=== PATIENT | female | born 1970 ===

== ENCOUNTER 2024-06-14 13:57 | Emergency (ER) | payer OTHER, SELFPAY ==
[2024-06-14 14:04] VITALS: BP 134/81; PULSE 79; TEMP 36.6; O2SAT 98; BMI 33.7
--- NOTE | 2024-06-14 14:30 | CT_ITS ---
The [address] [address] Patient Name: JHONNY DEAN MRN: [id number] date: 1970 Sex: F Assigned Patient Location: ER Current Patient Location: Accession/Order Number: [id number] Exam Date: 06/14/2024 15:00 Report Date: 06/14/2024 16:13 At the request of: NICOLA BISHOP Procedure: CT abdomen pelvis wo con EXAMINATION: CT abdomen pelvis wo con HISTORY: Left flank pain COMPARISON: No relevant comparison available. TECHNIQUE: Axial, Coronal, and Sagittal images were created without IV contrast. Dose reduction techniques were achieved by using automated exposure control and/or adjustment of mA and/or kV according to patient size and/or use of iterative reconstruction technique. FINDINGS: LUNG BASES: 5 mm nodule medial basilar segment of the right lower lobe. Dependent atelectasis. LIVER: Hepatomegaly, the liver measures 25 cm transversely image #26. No focal lesions BILIARY: Surgical clips from cholecystectomy PANCREAS: No lesion, fluid collection, ductal dilatation, or atrophy. SPLEEN: No enlargement or focal lesion. ADRENALS: No mass or enlargement. KIDNEYS: No mass, obstruction, or calcification. BOWEL/MESENTERY: Mild colonic diverticulosis without evidence of acute diverticulitis. AORTA/VASCULAR: No aneurysm or dissection. RETROPERITONEUM: No mass or adenopathy. LYMPH NODES: No adenopathy. URINARY BLADDER: No visible focal wall thickening, lesion, or calculus. PELVIC ORGANS: Hysterectomy ABDOMINAL WALL: No mass or hernia. BONES: No bony lesion or fracture. OTHER: Negative. CT/CT abdomen pelvis wo con IMPRESSION: No obstructive uropathy Electronically authenticated by: JOBY WISEMAN Date: 06/14/2024 16:13
--- NOTE | 2024-06-14 14:32 | ED.GENADUL1 ---
HPI HPI - General Adult General Chief complaint: Abdominal Pain Stated complaint: BACK PAIN, BLOODY STOOLS Time Seen by Provider: 06/14/24 14:19 Source: patient Mode of arrival: walk-in History of Present Illness HPI narrative: Patient is a 54-year-old female who presents to the emergency department for 2-day history of pain in the left flank. She does describe mild generalized abdominal discomfort but her primary source of pain is in the left low back. She denies any falls or injuries. Pain is worse with movement. She states that she noticed blood in her stool, yesterday she had a painful bowel movement. She states the blood is bright red, she had a routine colonoscopy several months ago that was unremarkable. She denies fevers or upper respiratory symptoms. No history of kidney stones or other kidney issues. No medications taken prior to arrival. Related Data Home Medications ?Medication ?Instructions ?Recorded ?Confirmed buspirone 15 mg tablet 15 mg PO DAILY 06/14/24 06/14/24 epinephrine 0.3 mg/0.3 mL 0.3 mg IM Q15M PRN anaphylaxis 06/14/24 06/14/24 injection, auto-injector estradiol 1 mg tablet 1 mg PO DAILY 06/14/24 06/14/24 fluticasone propionate 50 2 spray intranasal Q12H PRN nasal 06/14/24 06/14/24 mcg/actuation nasal congestion spray,suspension pantoprazole 20 mg tablet,delayed 20 mg PO DAILY 06/14/24 06/14/24 release sucralfate 1 gram tablet 1 g PO QID PRN stomach 06/14/24 06/14/24 trazodone 100 mg tablet 300 mg PO QPM 06/14/24 06/14/24 Previous Rx's ?Medication ?Instructions ?Recorded ketorolac 10 mg tablet 10 mg PO TID PRN pain #10 tabs 06/14/24 methocarbamol 750 mg tablet 750 mg PO TID PRN pain #20 tabs 06/14/24 oxycodone-acetaminophen 5 mg-325 1 tab PO Q6H PRN pain 3 days #12 06/14/24 mg tablet (Percocet) tabs Allergies Allergy/AdvReac Type Severity Reaction Status Date / Time amoxicillin (From Augmentin) Allergy Severe Unknown Verified 06/14/24 14:10 celecoxib (From Celebrex) Allergy Severe Muscle Pain Verified 06/14/24 14:10 clavulanic acid (From Allergy Severe Unknown Verified 06/14/24 14:10 Augmentin) Opioid HPI Opioid Management Most Recent Opioid Data: Last Pain Scale 8 06/14/24 14:45 06/14/24 Last MAR Pain Assessment 06/14/24 14:45 Review of Systems ROS Constitutional Denies: fever or chills Ears, nose, mouth, and throat Denies: throat pain or nasal congestion Cardiovascular Denies: chest pain Respiratory Denies: shortness of breath or cough Gastrointestinal Reports: abdominal pain and blood in stool; Denies: nausea, vomiting or diarrhea Musculoskeletal Denies: back pain Integumentary/Breast Denies: rash Neurological Denies: numbness in extremities or weakness in extremities Hematologic/Lymphatic Denies: easy bruising or easy bleeding Exam Narrative Exam Narrative: Gen.: Awake, alert, in no distress Head: Normocephalic, atraumatic ENT: Moist mucous membranes Respiratory: No respiratory distress, lungs clear bilaterally Cardio: Regular rate and rhythm Gastrointestinal: Abdomen is soft, nondistended and nontender to palpation Back: Tenderness of the left flank, no midline spinal tenderness. Rectal: Small external hemorrhoids, no active bleeding, rectal exam performed with Abby Jones RN at bedside throughout the duration of the exam Extremities: Moves extremities equally, no injuries noted Psych: Normal mood and affect Neuro: No focal neuro deficit Skin: Warm, dry, intact Constitutional Vital Signs, click to edit/add: Last Vital Signs Temp 97.8 F 06/14/24 14:04 Pulse 79 06/14/24 14:04 Resp 16 06/14/24 14:04 BP 134/81 06/14/24 14:04 Pulse Ox 98 06/14/24 14:04 O2 Del Method Room Air 06/14/24 14:04 Course Vital Signs Vital signs: Vital Signs Temperature 97.8 F 06/14/24 14:04 Pulse Rate 79 06/14/24 14:04 Respiratory Rate 16 06/14/24 14:04 Blood Pressure 134/81 06/14/24 14:04 Pulse Oximetry 98 06/14/24 14:04 Oxygen Delivery Method Room Air 06/14/24 14:04 Temperature 97.8 F 06/14/24 14:04 Pulse Rate 79 06/14/24 14:04 Respiratory Rate 16 06/14/24 14:04 Blood Pressure 134/81 06/14/24 14:04 Pulse Oximetry 98 06/14/24 14:04 Oxygen Delivery Method Room Air 06/14/24 14:04 Medical Decision Making MDM Narrative Medical decision making narrative: Urine specimen is contaminated, we will send for culture. Patient was medicated with Dilaudid, Norflex and Toradol. Her vital signs are stable in the ER, CT shows no evidence of acute process, the remainder of the lab studies are unremarkable. Patient was given education and reassurance, her pain is worse with movement, suspect musculoskeletal source. She is given a short course of analgesics, muscle relaxants and NSAIDs. Rest, ice, gentle stretching. Follow-up with PCP for further evaluation and treatment and return to the ER if symptoms change or worsen SUPERVISED APC VISIT, PHYSICIAN ATTESTATION: Based on the medical record the care appears appropriate. ? Medical Records Medical records reviewed: Yes I reviewed the patient's medical records Lab Data Lab results reviewed: Yes I reviewed the patient's lab results Labs: Lab Results 06/14/24 06/14/24 06/14/24 Range/Units 14:07 14:30 14:32 WBC 10.1 (4.0-11.0) 10^3/uL RBC 4.68 (4.20-5.40) 10^6/uL Hgb 14.4 (12.0-16.0) g/dL Hct 41.9 (36.0-48.0) % MCV 89.5 (81.0-99.0) fL MCH 30.8 (26.7-34.0) pg MCHC 34.4 (29.9-35.2) g/dL RDW 12.1 (11.0-15.0) % Plt Count 290 (150-450) 10^3/uL MPV 9.0 L (9.5-13.5) fL Neut % (Auto) 52.2 (43.0-75.0) % Lymph % (Auto) 40.8 (20.5-60.0) % [place] % (Auto) 5.1 (1.7-12.0) % Eos % (Auto) 1.3 (0.9-7.0) % Baso % (Auto) 0.4 (0.2-2.0) % Neut # (Auto) 5.3 (1.4-6.5) 10^3/uL Lymph # (Auto) 4.1 H (1.2-3.8) 10^3/uL [place] # (Auto) 0.5 (0.3-0.8) 10^3/uL Eos # (Auto) 0.1 (0.0-0.7) 10^3/uL Baso # (Auto) 0.0 (0.0-0.1) 10^3/uL Abs Immat Gran (auto) 0.02 (0.00-0.03) 10^3/uL Imm/Tot Granulo (auto) 0.2 (0.0-0.5) % Sodium 145 (136-145) mmol/L Potassium 3.4 L (3.5-5.1) mmol/L Chloride 107 (98-107) mmol/L Carbon Dioxide 30.3 (21.0-32.0) mmol/L Anion Gap 11.1 BUN 13.0 (7.0-18.0) mg/dL Creatinine 1.07 H (0.55-1.02) mg/dL Est GFR ( Amer) >60 (>=60 mL/min/1.73m^2) Est GFR (Non-Af Amer) 53 L (>=60 mL/min/1.73m^2) BUN/Creatinine Ratio 12.1 Glucose 91 (74-106) mg/dL Lactate 0.9 (0.4-2.0) mmol/L Calcium 8.7 (8.5-10.1) mg/dL Total Bilirubin 0.5 (0.2-1.0) mg/dL AST 18 (15-37) U/L ALT 18 (14-59) U/L Alkaline Phosphatase 75 (46-116) U/L Total Protein 6.6 (6.4-8.2) g/dL Albumin 3.4 (3.4-5.0) g/dL Globulin 3.2 g/dL Albumin/Globulin Ratio 1.1 Lipase 32.0 (16.0-77.0) U/L Urine Color Lt. yellow (YELLOW) Urine Clarity Clear (CLEAR) Urine pH 6.0 (5.0-9.0) Ur Specific [place] <=1.005 A (1.005-1.025) Urine Protein Negative (NEG/TRACE) mg/dL Urine Glucose (UA) Negative (NEGATIVE) mg/dL Urine Ketones Negative (NEGATIVE) mg/dL Urine Occult Blood Trace-i (NEGATIVE) Urine Nitrite Negative (NEGATIVE) Urine Bilirubin Negative (NEGATIVE) Urine Urobilinogen 0.2 (0.2-1.0) EU/dL Ur Leukocyte Esterase Negative (NEGATIVE) Urine RBC 0-2 (0-2) #/HPF Urine WBC None seen (NONE SEEN) #/HPF Ur Squamous Epith Cells Many A (NONE/RARE) #/LPF Ur Transition Epith Cell Rare A (NONE SEEN) #/LPF Urine Crystals None seen (None Seen) #/HPF Urine Bacteria Moderate A (NONE SEEN) #/HPF Urine Casts None seen (NONE SEEN) #/LPF Urine Mucus Trace A (NONE SEEN) Ur Culture Indicated? Yes Stool Occult Blood Negative Imaging Data CT scan - abdomen: Attestation: I have reviewed the pertinent imaging results. Radiologist's impression: ITS Impressions Abdomen/Pelvis CT 06/14/24 14:30 IMPRESSION: No obstructive uropathy Electronically authenticated by: JOBY WISEMAN Date: 06/14/2024 16:13 Discharge Plan Discharge Chief Complaint: Abdominal Pain Clinical Impression: Acute left flank pain Patient Disposition: Home, Self-Care Time of Disposition Decision: 16:47 Condition: Good Mode of Transportation: Private Vehicle Prescriptions / Home Meds: New ketorolac 10 mg tablet 10 mg PO TID PRN (Reason: pain) Qty: 10 0RF oxycodone-acetaminophen [Percocet] 5-325 mg tablet 1 tab PO Q6H PRN (Reason: pain) 3 Days Qty: 12 0RF Rx Instructions: DX: M54.5 methocarbamol 750 mg tablet 750 mg PO TID PRN (Reason: pain) Qty: 20 0RF No Action buspirone 15 mg tablet 15 mg PO DAILY epinephrine 0.3 mg/0.3 mL auto-injector 0.3 mg IM Q15M PRN (Reason: anaphylaxis) estradiol 1 mg tablet 1 mg PO DAILY fluticasone propionate 50 mcg/actuation spray,suspension 2 spray INTRANASAL Q12H PRN (Reason: nasal congestion) pantoprazole 20 mg tablet,delayed release (DR/EC) 20 mg PO DAILY sucralfate 1 gram tablet 1 g PO QID PRN (Reason: stomach) trazodone 100 mg tablet 300 mg PO QPM Print Language: Malawian Instructions: Flank Pain (ED) Referrals: Physician,Non-Staff, MD [Physician] - 1 week Discharge Date/Time: 06/14/24 16:57
[2024-06-14] MEDS: HYDROMORPHONE HCL 0.5 MG/0.5 ML SYRINGE IV (14:45)
[2024-06-14] MEDS: ONDANSETRON PF 4 MG/2 ML VIAL IV (14:45)
[2024-06-14] MEDS: 0.9 % SODIUM CHLORIDE 1,000 ML 999 ML IV (14:45)
[2024-06-14] MEDS: ORPHENADRINE 60 MG/ 2 ML VIAL IV (14:45)
[2024-06-14 14:46] LABS: Basophils Percent Auto 0.4 % (0.2-2.0); Eosinophils Absolute Auto 0.1 10^3/uL (0.0-0.7); Eosinophils Percent Auto 1.3 % (0.9-7.0); Hematocrit 41.9 % (36.0-48.0); Hemoglobin 14.4 g/dL (12.0-16.0); Immature Granulocytes Abs Auto 0.02 10^3/uL (0.00-0.03); Immature Granulocytes Pct Auto 0.2 % (0.0-0.5); Lymphocytes Absolute Auto 4.1 10^3/uL (1.2-3.8); Lymphocytes Percent Auto 40.8 % (20.5-60.0); Mean Corpuscular HGB Conc 34.4 g/dL (29.9-35.2); Mean Corpuscular Hemoglobin 30.8 pg (26.7-34.0); Mean Corpuscular Volume 89.5 fL (81.0-99.0); Monocytes Absolute Auto 0.5 10^3/uL (0.3-0.8); Monocytes Percent Auto 5.1 % (1.7-12.0); Neutrophils Absolute Auto 5.3 10^3/uL (1.4-6.5); Neutrophils Percent Auto 52.2 % (43.0-75.0); Platelet Count 290 10^3/uL (150-450); Red Blood Count 4.68 10^6/uL (4.20-5.40); Red Cell Distribution Width 12.1 % (11.0-15.0); White Blood Count 10.1 10^3/uL (4.0-11.0)
[2024-06-14 14:47] LABS: Bilirubin Urine NEGATIVE (NEGATIVE); Blood Urine TRACE-I (NEGATIVE); Clarity Urine CLEAR (CLEAR); Color Urine LT. YELLOW (YELLOW); Glucose Urine UA NEGATIVE (NEGATIVE); Ketones Urine NEGATIVE (NEGATIVE); Leukocyte Esterase Urine NEGATIVE (NEGATIVE); Nitrite Urine NEGATIVE (NEGATIVE); Protein Urine NEGATIVE (NEG/TRACE); Specific Gravity Urine <=1.005 (1.005-1.025); Urobilinogen Urine 0.2 EU/dL (0.2-1.0)
[2024-06-14 14:55] LABS: Urine Microscopic Indicated YES
[2024-06-14 15:04] LABS: Internal Control Within Normal Limits; Occult Blood Negative
[2024-06-14 15:05] LABS: Alanine Aminotransferase 18 U/L (14-59); Albumin Globulin Ratio 1.1; Albumin Level 3.4 g/dL (3.4-5.0); Alkaline Phosphatase 75 U/L (46-116); Anion Gap 11.1; Aspartate Amino Transferase 18 U/L (15-37); BUN Creatinine Ratio 12.1; Bilirubin Total 0.5 mg/dL (0.2-1.0); Calcium 8.7 mg/dL (8.5-10.1); Carbon Dioxide 30.3 mmol/L (21.0-32.0); Chloride 107 mmol/L (98-107); Estimated GFR (African America >60 (>=60 mL/min/1.73m^2); Estimated GFR (Non-African Ame 53 (>=60 mL/min/1.73m^2); Globulin 3.2 g/dL; Glucose 91 mg/dL (74-106); Potassium 3.4 mmol/L (3.5-5.1); Sodium 145 mmol/L (136-145); Total Protein 6.6 g/dL (6.4-8.2)
[2024-06-14 15:07] LABS: Lactate/Lactic Acid 0.9 mmol/L (0.4-2.0)
[2024-06-14 15:45] LABS: Bacteria Urine MODERATE #/HPF (NONE SEEN); Cast Seen? NONE SEEN #/LPF (NONE SEEN); Crystals Seen? None Seen #/HPF (None Seen); Mucus Urine TRACE (NONE SEEN); RBC Urine 0-2 #/HPF (0-2); Squamous Epithelial Cell Urine MANY #/LPF (NONE/RARE); Transitional Epi Cells Urine RARE #/LPF (NONE SEEN); WBC Urine NONE SEEN #/HPF (NONE SEEN)
[2024-06-14 15:46] LABS: Urine Culture Indicated YES
[2024-06-14] MEDS: KETOROLAC TROMETHAMINE 30 MG/ML VIAL IVP (16:18)
== END 2024-06-14 16:57 | disposition home or self-care (01) ==
PROVIDERS: Physician Assistant; Emergency Provider Emergency Medicine; PCP Nurse Practitioner Family
DX: R10.9 Unspecified abdominal pain (principal)
CPT/HCPCS: 36415; 74176; 80053; 81001; 83605; 83690; 85025; 87086; 96374; 96375; 99285; G0328; J1171; J1885; J2360; J2405